=== PATIENT | male | born 1945 | race Caucasian/White ===

== ENCOUNTER 2016-08-24 05:31 | Observation (INO) | payer MEDICARE, BC ==
--- NOTE | 2016-08-23 21:30 | HP ---
Date/Time of Note Date/Time of Note DATE: 08/23/16 TIME: 21:17 Assessment/Plan VTE Prophylaxis VTE Prophylaxis Intervention: ambulation Lines/Catheters IV Catheter Type (from Nrs): Peripheral IV Assessment/Plan Assessment/Plan Assessment: 1. New onset angina with nuclear stress test suggesting moderate ( "predominantly irreversible" ) defect in inferior and inferoseptal territory with preserved LVEF and no wall motion abnormalities 2. CAD, s/p PCI LAD with RUPALI X 3 (02/01), residual lesion in distal PDA 3. Hypertensive heart disease 4. Dyslipidemia, controlled on a statin 5. Chronic kidney disease, stage II. was stable/improved 6. YOLANDA, positional 7. SSS, 2 AV block, s/p PPMI 8. Minimal atherosclerotic plaque at bilateral carotid bulbs 02/05 Plan: 1. Will proceed with cardiac cath +/- PCI. Indications, risks, benefits and alternatives discussed and the patient agrees to proceed 2. Further recs to follow. HPI/ROS Admit Date/Time Admit Date/Time 08/24/16 0700 Hx of Present Illness 71-year-old male with history of hypertension, dyslipidemia, SSS and 2:1 AV block s/p PPM and CAD, s/p PCI LAD 01/26/12 presents for an elective cardiac catheterization. He underwent exercise/lexiscan nuclear stress test on 08/21/16 which showed a moderate defect in the inferior/inferoseptal territory. Over the past few weeks he has noticed a burning discomfort in his chest that worsens with exertion, it tends to radiate to the jaw. Resolves with rest. Denies SOB, GUNDERSON, PND, orthopnea or lower extremity edema. No presyncope, syncope or palpitations. No LH/dizziness. ROS See HPI, full 14 point ROS is otherwise negative PMH/Family/Social Past Medical History CAD, s/p PCI LAD with Promus 2.5 X 20, Promus 2.25 X 24 and Promus 2.25 X 12; SSS, 2:1 AV block, s/p PPM Hyperlipidemia Hypertension BPH Family History Significant Family History: no pertinent family hx Social History Smoking Status: Never smoker Drug Use: none Exam/Review of Systems Exam Constitutional: alert, oriented, well developed Psych: nl mood/affect, no complaints Head: atraumatic, normocephalic Neck: non-tender, supple Respiratory: clear to auscultation, normal air movement Cardiovascular: nl pulses, regular rate and rhythm, No S3, No S4, No diastolic murmur, No edema, No systolic murmur Gastrointestinal: bowel sounds, nl liver, spleen, non-tender, soft Extremities: No calf tenderness, No clubbing, No cyanosis, No edema Medications Medications Current Medications Aspirin (Aspirin) 325 mg ONCE PO ; Start 08/24/16 at 06:00; Stop 08/24/16 at 23:00 IV Flush (NS 3 ml) 3 ml Q8 IV ; Start 08/24/16 at 06:00; Stop 08/24/16 at 23:00 Midazolam HCl (Versed) 1 mg OC IV ; Start 08/24/16 at 06:00; Stop 08/24/16 at 23: 00 MANUEL BACA MD August 23, 2016 21:29
[2016-08-24] VITALS (27 sets, daily range): BP systolic 109–156; BP diastolic 57–84; PULSE 60–69; RESP 12–21
[~2016-08-24] VITALS: Ht 175.3 cm; Wt 81.0 kg
[~2016-08-24 05:31] MED LIST: ASPI-650 PO; LISI20TA11 PO; PRA40 PO; TAMS-14 PO
[2016-08-24] MEDS ORDERED: MIDAZOLAM 1 MG/ML 2 ML INJ IV SCH (06:00)
[2016-08-24] MEDS ORDERED: ASPIRIN 325 MG TAB PO SCH (06:00)
[2016-08-24 06:36] LABS: ADD SCAN DIFF NO
[2016-08-24 06:43] LABS: BASOPHILS % 0.3 % (0.0-2.0); EOSINOPHILS # 0.3 10^3/ul (0.0-0.5); HEMATOCRIT 39.5 % (42.0-52.0); HEMOGLOBIN 13.9 g/dl (14.0-18.0); LYMPHOCYTES # 1.4 10^3/ul (0.8-2.9); LYMPHOCYTES % 18.9 % (15.0-51.0); MEAN CORPUSCULAR HEMOGLOBIN 30.3 pg (29.0-33.0); MEAN CORPUSCULAR HGB CONC 35.2 g/dl (32.0-37.0); MEAN CORPUSCULAR VOLUME 86.1 fl (82.0-101.0); MEAN PLATELET VOLUME 9.5 fl (7.4-10.4); MONOCYTE # 0.6 10^3/ul (0.3-0.9); MONOCYTES % 7.9 % (0.0-11.0); NEUTROPHILS % 68.8 % (39.0-77.0); PLATELET COUNT 173 10^3/UL (140-415); RED BLOOD COUNT 4.59 10^6/ul (4.70-6.10); WHITE BLOOD COUNT 7.3 10^3/ul (4.8-10.8)
[2016-08-24] MEDS ORDERED: [UNRECOGNIZED DRUG - CODE] MC (06:45)
[2016-08-24] MEDS ORDERED: ASPI325T4 PO (06:45)
[2016-08-24] MEDS ORDERED: AMLO2.5T78 PO (06:45)
[2016-08-24] MEDS ORDERED: PRA40 PO (06:45)
[2016-08-24 07:08] LABS: CALCIUM 9.9 mg/dl (8.4-10.2); CREATININE 1.51 mg/dl (0.61-1.24)
[2016-08-24 07:18] LABS: INR 0.84; PROTIME 11.5 Sec (12.2-14.2); PT RATIO 0.9
[2016-08-24] MEDS ORDERED: NITROGLYCERIN (IC) 100 MCG/ML INJ ONE (07:23)
[2016-08-24] MEDS ORDERED: VERAPAMIL 5 MG INJ ONE (07:23)
[2016-08-24] MEDS ORDERED: HEPARIN 1000 UNITS/ML 10 ML INJ ONE (07:23)
[2016-08-24] MEDS ORDERED: FENTAnyl 50 MCG/ML VIAL ONE (07:26)
[2016-08-24] MEDS ORDERED: ASPIRIN 325 MG TAB ONE (07:26)
[2016-08-24] MEDS ORDERED: MIDAZOLAM 1 MG/ML 2 ML INJ ONE (07:26)
[2016-08-24] MEDS ORDERED: LIDOCAINE 1% (MDV) 20 ML INJ ONE (07:34)
[2016-08-24] MEDS ORDERED: IODIXANOL LOCM 100 ML BTL ONE (07:34)
[2016-08-24] MEDS ORDERED: SOD CHLORIDE 0.9% 500 ML ONE (07:34)
[2016-08-24] MEDS ORDERED: BIVALIRUDIN 250MG /NS 50 ML 50 ML IVPB ONE (08:10)
[2016-08-24] MEDS ORDERED: TICAGRELOR 90 MG TABLET ONE (08:16)
[2016-08-24 08:19] LABS: PARTIAL THROMBOPLASTIN TIME 24.1 Sec (25.0-35.0)
[2016-08-24] MEDS: SOD CHLORIDE 0.9% 1,000 ML IV SCH ×2 (08:57→16:00)
[2016-08-24] MEDS ORDERED: AL HYDROX/MG HYDROX/SIMETH 30 ML CUP PO PRN (09:00)
[2016-08-24] MEDS ORDERED: OXYCODONE/ACETAMINOPHEN (5/325) TAB PO PRN (09:00)
[2016-08-24] MEDS: DOCUSATE SODIUM 100 MG CAP PO SCH ×2 (09:00→21:33)
[2016-08-24] MEDS: FAMOTIDINE 20 MG TAB PO SCH ×2 (09:00→21:00)
[2016-08-24] MEDS ORDERED: ASPIRIN (EC) 81 MG TAB PO SCH ×2 (09:00→21:00)
[2016-08-24] MEDS: TICAGRELOR 90 MG TABLET PO SCH ×2 (09:00→23:12)
[2016-08-24] MEDS ORDERED: ACETAMINOPHEN 325 MG TAB PO PRN (09:00)
[2016-08-24] MEDS ORDERED: NITROGLYCERIN (SL) 0.4 MG TAB SL PRN (09:00)
[2016-08-24] MEDS ORDERED: ZOLPIDEM 5 MG TAB PO PRN (09:00)
[2016-08-24] MEDS ORDERED: AMLODIPINE 5 MG TAB PO SCH ×2 (09:30→21:00)
[2016-08-24] MEDS ORDERED: ONDANSETRON 4 MG INJ ONE (09:44)
[2016-08-24] MEDS ORDERED: ONDANSETRON 4 MG INJ IV PRN (10:00)
--- NOTE | 2016-08-24 11:00 | OPR ---
DATE OF OPERATION: 08/24/2016 PROCEDURES PERFORMED: 1. Left heart catheterization including selective right and left arteriogram. 2. Successful PCI of the mid LAD with deployment of a drug-eluting stent. INDICATIONS: Angina refractory to medical therapy. PREOPERATIVE DIAGNOSIS: Coronary artery disease/angina. POSTOPERATIVE DIAGNOSIS: Coronary artery disease status post PCI of the LAD. BRIEF HISTORY: Mr. Mcrae is a 71-year-old gentleman with history of CAD, status post PCI of the LAD with 3 drug-eluting stents in 2011, hypertension, dyslipidemia, CKD, sick sinus syndrome and 2:1 AV block status post permanent pacemaker 3 weeks ago, that presents for elective cardiac catheterization. Over the past few weeks, the patient has noted a burning in his chest that is brought on with exertion and resolves with rest. The pain does radiate to his jaw. An exercise/lexiscan nuclear stress test was performed this past Sunday, which was reported as an irreversible defect in the inferior and inferoseptal territories with preserved ejection fraction. Due to the abnormal stress test, the patient's ongoing symptoms and his prior cardiac history, it was decided to proceed with cardiac catheterization today for definitive evaluation. DESCRIPTION OF PROCEDURE: The patient was informed of the indications, risks, benefits and alternatives of the procedure and he agreed to proceed. The patient was premedicated with Versed 2 mg IV and fentanyl 25 mcg IV. Approximately 2 mL of lidocaine was infused into the right wrist for local anesthesia. Subsequently, right radial artery access was obtained and a 6 [place] sheath was inserted into the right radial artery without difficulty. Subsequently, 6-[place] JR4 catheter was advanced under fluoroscopy into the ascending aorta. Baseline hemodynamics were recorded. Subsequently, the catheter was advanced to the right coronary artery and multiple orthogonal views of the right coronary system were obtained. Subsequently, this catheter was withdrawn over a wire and exchanged for a 6-[place] JL3.5 catheter. This catheter was then used to cannulate the left main artery under fluoroscopy. Multiple orthogonal views of the left coronary system were obtained. Subsequently, this catheter was exchanged over a guidewire for a 6-[place] pigtail catheter. The pigtail catheter was eventually advanced to the left ventricle. Baseline hemodynamics were recorded. LV angiogram was deferred due to mildly elevated creatinine. Subsequently, pullback gradient across the aortic valve was recorded. CARDIAC CATHETERIZATION FINDINGS: 1. Opening aortic pressure is 131/76, no aortic valve gradient. LVEDP 10 mmHg. 2. The right coronary artery is a large, dominant vessel. There is a proximal and mid 30% lesion. The PDA is severely diseased. There is a 80% ostial lesion followed by a mid 80% lesion. The vessel is small in caliber. 3. The left main artery is normal and gives rise to the left anterior descending and circumflex arteries. 4. Left circumflex vessel is relatively large. Mild irregularities are noted throughout. There is a large first obtuse marginal branch with a proximal to mid 20% lesion. 5. The left anterior descending artery has evidence of 3 previously deployed stents. There is a 20% lesion in the proximal LAD. The early aspect of the most proximal stent has 20% in-stent restenosis followed by 80% discrete lesion. Just distal to this area, there is another 60% lesion followed by mild luminal irregularities. Distally, the vessel tapers to a small vessel. The diagonal vessels are small to moderate in size with mild irregularities. CLINICAL DECISION MAKING: The patient clearly has a severe obstructive lesion in the LAD which is likely causing the patient's symptoms. The disease noted in the PDA has been present before and was treated medically. For that reason, we will attempt to proceed with a PCI of the left anterior descending artery. This plan was conveyed to the patient and he agreed to proceed. PCI of the LAD: Patient was already pretreated with aspirin and given a loading dose of Brilinta. Angiomax infusion was initiated. A JL3.5 guide catheter was advanced to the aorta and into the left main artery was engaged without difficulty. Subsequently, a BMW wire was advanced across the lesion into the distal aspect of the LAD. Subsequently, an Emerge 2.5 x 8 mm balloon was advanced at the diseased segment and inflated to 12 atmospheres. Subsequently, the balloon was withdrawn. Post-angioplasty angiogram showed good balloon dilatation result. There was no evidence of dissection. Subsequently, a Synergy 2.5 x 20 mm drug-eluting stent was advanced to the diseased segment to cover the predilated area as well as the slightly more distal 60% lesion. The stent was deployed at 14 atmospheres. Subsequently, the stent was withdrawn and exchanged for a 2.75 x 8 mm noncompliant balloon. In total, 3 post-stent dilatations were performed at 16, followed by 18 atmospheres. Final result was excellent with less than 10% residual stenosis, MAG 3 flow and no evidence of edge dissection. The patient tolerated the procedure well and no immediate complications were noted. Subsequent to the case, a TR band was placed and inflated to achieve adequate hemostasis while the sheath was removed. ANGIOPLASTY EQUIPMENT USED: 1. JL3.5 guide catheter. 2. BMW angioplasty wire. 3. Emerge 2.5 x 8 mm balloon. 4. Synergy 2.5 x 20 mm drug-eluting stent. 5. 2.75 x 8 mm noncompliant balloon. MEDICATIONS ADMINISTERED: 1. Versed 1 mg IV x2. 2. Fentanyl 25 mcg IV. 3. Aspirin 325 mg. 4. Brilinta 180 mg. 5. Angiomax bolus followed by continuous infusion. FLUOROSCOPY TIME: 18.7 minutes. CONTRAST USED: Visipaque 65 mL. CONCLUSIONS: 1. Severe mid LAD in-stent restenosis, status post successful PCI of the LAD with deployment of a drug-eluting stent. 2. Residual severe diffuse lesion in the PDA, relatively unchanged from cardiac catheterization in 2011. 3. Hypertension. 4. CKD. 5. Dyslipidemia. PLAN: 1. The patient will be moved to the ICU for routine post-PCI care. 2. The patient will be continued on dual antiplatelet therapy for minimum of 12 months. 3. Will continue the patient on his home medication regimen including KEANU inhibitor, Norvasc. Beta blockers will be considered now that the patient does have a permanent pacemaker in place. 4. Gentle IV hydration. 5. If no acute events, the patient will likely be discharged tomorrow morning and follow up with me in the outpatient setting. Dictated By: MANUEL UNDERWOOD/BLUE Conf#: [id number] DID#: [id number] HANDY
[2016-08-24] MEDS: NACL 0.9% 3 ML SYG IV SCH ×3 (15:30→22:00)
[2016-08-24] MEDS ORDERED: TAMSULOSIN (SR) 0.4 MG CAP PO SCH (21:00)
[2016-08-24] MEDS ORDERED: ATORVASTATIN 10 MG TAB PO SCH (21:00)
[2016-08-25 01:10] VITALS: PULSE 66
[2016-08-25 04:00] VITALS: BP 139/69; RESP 19
[2016-08-25 04:29] VITALS: PULSE 63
[2016-08-25 07:23] LABS: ADD SCAN DIFF NO
[2016-08-25 07:31] LABS: BASOPHILS % 0.1 % (0.0-2.0); EOSINOPHILS # 0.3 10^3/ul (0.0-0.5); HEMATOCRIT 33.7 % (42.0-52.0); HEMOGLOBIN 11.8 g/dl (14.0-18.0); LYMPHOCYTES # 1.4 10^3/ul (0.8-2.9); LYMPHOCYTES % 18.6 % (15.0-51.0); MEAN CORPUSCULAR HEMOGLOBIN 29.6 pg (29.0-33.0); MEAN CORPUSCULAR VOLUME 84.5 fl (82.0-101.0); MEAN PLATELET VOLUME 9.9 fl (7.4-10.4); MONOCYTE # 0.6 10^3/ul (0.3-0.9); MONOCYTES % 7.5 % (0.0-11.0); NEUTROPHIL # 5.3 10^3/ul (1.6-7.5); NEUTROPHILS % 69.5 % (39.0-77.0); PLATELET COUNT 147 10^3/UL (140-415); RED BLOOD COUNT 3.99 10^6/ul (4.70-6.10); RED CELL DISTRIBUTION WIDTH 13.2 % (11.5-14.5); WHITE BLOOD COUNT 7.6 10^3/ul (4.8-10.8)
[2016-08-25 07:38] VITALS: BP 136/75; RESP 17
[2016-08-25 08:04] LABS: CALCIUM 9.2 mg/dl (8.4-10.2); CREATININE 1.23 mg/dl (0.61-1.24); POTASSIUM 3.9 mmol/L (3.5-5.1)
[2016-08-25 08:07] LABS: TROPONIN-I 0.03 ng/ml (0.00-0.12)
--- NOTE | 2016-08-25 08:25 | DS ---
Date/Time of Note Date/Time of Note DATE: 08/25/16 TIME: 08:22 Discharge Summary Admission/Discharge Info Admit Date/Time August 24, 2016 at 09:20 Discharge Date/Time 08/25/16, 0900 Final Diagnosis 1. CAD, s/p PCI mid-LAD with RUPALI 2. Hypertension 3. CKD, stage 2; stable 4. Dyslipidemia 5. Sick sinus syndrome, 2:1 AV block; s/p PPM 3 weeks ago Patient Condition: Good Procedures Left heart catheterization and PCI LAD 08/24/16 Hx of Present Illness 71-year-old male with history of hypertension, dyslipidemia, SSS and 2:1 AV block s/p PPM and CAD, s/p PCI LAD 01/26/12 presents for an elective cardiac catheterization. He underwent exercise/lexiscan nuclear stress test on 08/21/16 which showed a moderate defect in the inferior/inferoseptal territory. Over the past few weeks he has noticed a burning discomfort in his chest that worsens with exertion, it tends to radiate to the jaw. Resolves with rest. Denies SOB, GUNDERSON, PND, orthopnea or lower extremity edema. No presyncope, syncope or palpitations. No LH/dizziness. Hospital Course The patient underwent successful cardiac catheterization and PCI LAD on 08/24/16. Post-PCI course was uneventful. He will be discharged today and follow-up with me in the office next week. Home meds will be continued and dual antiplatelet therapy will be initiated. Activity restrictions discussed with the patient. Home Meds Reported Medications Calcitriol (Calcitriol) 0.001 Gm Crystals, 0.25 MCG MC 08/24/16 Amlodipine Besylate* (Amlodipine Besylate*) 2.5 Mg Tablet, 5 MG PO DAILY, #30 TAB 08/24/16 Pravastatin Sodium* (Pravachol*) 40 Mg Tablet, 40 MG PO HS, TAB 08/24/16 Aspirin* (Aspirin*) 325 Mg Tablet, 325 MG PO DAILY, TAB 08/24/16 Aspirin (Aspirin) 81 Mg Tablet, 81 MG PO DAILY 01/26/12 Pravastatin Sodium* (Pravachol*) 40 Mg Tablet, 40 MG PO DAILY 01/26/12 Tamsulosin Hcl* (Flomax*) 0.4 Mg Cap.sr.24h, 0.4 MG PO DAILY 01/26/12 Lisinopril* (Lisinopril*) 20 Mg Tablet, 20 MG PO DAILY 01/26/12 Follow-up Plan Follow-up with Dr. Bourne 08/31/16 Pending Labs Laboratory Tests Test 08/25/16 06:50 White Blood Count 7.610^3/ul (4.8-10.8) Red Blood Count 3.9910^6/ul (4.70-6.10) Hemoglobin 11.8g/dl (14.0-18.0) Hematocrit 33.7% (42.0-52.0) Mean Corpuscular Volume 84.5fl (82.0-101.0) Mean Corpuscular Hemoglobin 29.6pg (29.0-33.0) Mean Corpuscular Hemoglobin Concent 35.0g/dl (32.0-37.0) Red Cell Distribution Width 13.2% (11.5-14.5) Platelet Count 06114^3/UL (140-415) Mean Platelet Volume 9.9fl (7.4-10.4) Neutrophils % 69.5% (39.0-77.0) Lymphocytes % 18.6% (15.0-51.0) Monocytes % 7.5% (0.0-11.0) Eosinophils % 4.0% (0.0-7.0) Basophils % 0.1% (0.0-2.0) Nucleated Red Blood Cells % 0.0/100WBC (0.0-0.0) Neutrophils # 5.310^3/ul (1.6-7.5) Lymphocytes # 1.410^3/ul (0.8-2.9) Monocytes # 0.610^3/ul (0.3-0.9) Eosinophils # 0.310^3/ul (0.0-0.5) Basophils # 0.010^3/ul (0.0-0.1) Nucleated Red Blood Cells # 0.010^3/ul (0.0-0.0) MANUEL BOURNE MD August 25, 2016 08:25
[2016-08-25 08:38] VITALS: PULSE 60
[2016-08-25] MEDS: FAMOTIDINE 20 MG TAB PO SCH (08:39)
[2016-08-25] MEDS: DOCUSATE SODIUM 100 MG CAP PO SCH (08:39)
[2016-08-25] MEDS: TICAGRELOR 90 MG TABLET PO SCH (08:41)
[2016-08-25] MEDS ORDERED: TICA90TA PO (08:55)
[2016-08-25] MEDS ORDERED: TAMSULOSIN (SR) 0.4 MG CAP PO SCH (09:00)
[2016-08-25] MEDS ORDERED: LISINOPRIL 20 MG TAB PO SCH (09:00)
[2016-08-25] MEDS ORDERED: ASPIRIN 81 MG TAB PO SCH (09:00)
--- NOTE | 2016-08-25 16:39 | RADRPT ---
Vent Rate: 60 bpm RR Interval: 0 msec UT Interval: 184 msec QRS Duration: 186 msec QT Interval: 506 msec QTC Interval: 506 msec P-R-T [place]: -13 - -75 - 85 degrees AV sequential or dual chamber electronic pacemaker Electronically Signed By: Jorge Dsouza [id number]
== END 2016-08-25 10:21 | disposition home or self-care (01) ==
LOC: SDS 05:31 → MS4 09:20
PROVIDERS: ADMIT Internal Medicine Cardiovascular Disease; ATTEND Internal Medicine Cardiovascular Disease
DX: I25.119 Atherosclerotic heart disease of native coronary artery with unspecified angina pectoris (principal); I12.9 Hypertensive chronic kidney disease with stage 1 through stage 4 chronic kidney disease, or unspecified chronic kidney disease; N18.2 Chronic kidney disease, stage 2 (mild); E78.5 Hyperlipidemia, unspecified; I49.5 Sick sinus syndrome; G47.33 Obstructive sleep apnea (adult) (pediatric); N40.0 Benign prostatic hyperplasia without lower urinary tract symptoms; Z79.82 Long term (current) use of aspirin
CPT/HCPCS: 80048; 84484; 85025; 85610; 85730; 93005; 93458; C1725; C1769; C1874; C1887; C9600; G0378; J0583; J1644; J2250; J2405; J3010; J7040; Q9967